=== PATIENT | male | born 1985 | race Caucasian/White ===

== ENCOUNTER → 2023-11-12 | Outpatient (CLI) | payer OTHER ==
[2023-11-12 08:37] LABS: AMYLASE 62 U/L (25-115); LIPASE 37 U/L (16-77)
== END | disposition home or self-care (01) ==
LOC: MSR 08:04
PROVIDERS: ATTEND Chiropractor
DX: M47.817 Spondylosis without myelopathy or radiculopathy, lumbosacral region (principal); M47.814 Spondylosis without myelopathy or radiculopathy, thoracic region; M47.812 Spondylosis without myelopathy or radiculopathy, cervical region; R09.89 Other specified symptoms and signs involving the circulatory and respiratory systems; E55.9 Vitamin D deficiency, unspecified; M48.061 Spinal stenosis, lumbar region without neurogenic claudication; M48.04 Spinal stenosis, thoracic region; M25.78 Osteophyte, vertebrae; M48.02 Spinal stenosis, cervical region; R59.1 Generalized enlarged lymph nodes; K86.81 Exocrine pancreatic insufficiency; M72.2 Plantar fascial fibromatosis; M54.50 Low back pain, unspecified; R06.02 Shortness of breath; M41.86 Other forms of scoliosis, lumbar region
CPT/HCPCS: 71046; 72040; 72070; 72100; 82150; 82306; 83690; 36415-L1; 36415-TC